=== PATIENT | female | born 2000 ===

== ENCOUNTER → 2019-07-20 11:04 | Outpatient (CLI) | payer BC, SELFPAY ==
[2019-07-20 14:06] LABS: Urine N gonorrhoeae NOT DETECTED
[2019-07-20 14:20] LABS: Urine Chlamydia NOT DETECTED
== END ==
PROVIDERS: Visit Provider Obstetrics & Gynecology
DX: Z11.3 Encounter for screening for infections with a predominantly sexual mode of transmission (principal)
CPT/HCPCS: 87491; 87591